=== PATIENT | female | born 1960 | race Caucasian/White ===

== ENCOUNTER → 2018-03-21 | Outpatient (CLI) | payer MEDICAID ==
--- NOTE | 2018-03-21 22:44 | MR ---
EXAMINATION TYPE: MR knee RT wo con DATE OF EXAM: 03/21/2018 COMPARISON: NONE HISTORY: Pain in right knee , unilateral primary osteoarthritis, medial meniscal tear, and chondrocal cinosis all per order. TECHNIQUE: Multiplanar, multisequence images of the knee is performed without IV contrast. FINDINGS: Exam is noted suboptimal due to motion artifact degradation. MEDIAL MENISCUS: Anterior horn is intact without tear. There is oblique increased signal posterior ho rn of medial meniscus extending to inferior articular surface. Medial extrusion of medial meniscus as seen on coronal images. LATERAL MENISCUS: Anterior and posterior horns are intact without tear. CRUCIATE LIGAMENTS: The anterior and posterior cruciate ligaments are intact and unremarkable. COLLATERAL LIGAMENTS: The medial collateral ligament and lateral collateral ligament complex are inta ct and unremarkable. EXTENSOR MECHANISM: Visualized quadriceps and patellar tendons are intact. EFFUSION: There is fairly moderate size suprapatellar joint effusion. POPLITEAL CYST: There is fairly moderate size popliteal/benavidez cyst measuring 6.0 cm sagittal image 11 . TRICOMPARTMENT SPACES: Fairly moderate tricompartment joint space loss and mild to moderate spurring lateral medial tibiofemoral compartments is present. CARTILAGE: There is chondromalacia patella with full-thickness areas of cartilaginous loss and assurance senior manager insurance ior patellar pole identified. Some more mild cartilaginous loss medial tibial femoral compartment is present. BONE MARROW SIGNAL: Marked heterogeneous increased T2 signal medial aspect tibial plateau is identifi ed. Some reactive osseous increased T2 changes at the areas of full-thickness cartilaginous loss posterio r patellar pole are identified for reference sagittal image 20. OTHER: Oval 7 mm benign osseous lesion distal femur coronal image 12 is noted favored enchondroma. IMPRESSION: 1. Oblique full thickness tear posterior horn medial meniscus. 2. Background fairly moderate to borderline advanced tricompartment degenerative changes with full-th ickness chondromalacia patella noted. 3. Moderate suprapatellar joint effusion. 4. Moderate sized popliteal cyst. 5. Marked osseous contusion and/or bone marrow edema involving the medial half of the tibial plateau and medial one third of the proximal tibial metaphysis.
== END | disposition home or self-care (01) ==
LOC: RADMRIMAIN 21:31
PROVIDERS: ATTEND Orthopaedic Surgery
DX: S83.241A Other tear of medial meniscus, current injury, right knee, initial encounter (principal); M17.11 Unilateral primary osteoarthritis, right knee; M22.41 Chondromalacia patellae, right knee; M71.21 Synovial cyst of popliteal space [Baker], right knee

== ENCOUNTER 2019-02-28 16:06 | Emergency (ER) | payer MEDICAID ==
[2019-02-28] MEDS ORDERED: ONDANSETRON 4 MG/2 ML VIAL IVP STA (16:47)
[2019-02-28] MEDS ORDERED: KETOROLAC 30 MG/ML 1 ML VIAL IVP STA (16:48)
[2019-02-28] MEDS ORDERED: SODIUM CHLORIDE 0.9% 500 ML 500 ML IV ONE (17:12)
[2019-02-28 17:33] LABS: Basophils # (A) 0.1 k/uL (0-0.2); Basophils % (A) 1 %; Eosinophils # (A) 0.1 k/uL (0-0.7); Eosinophils % (A) 1 %; HCT 42.1 % (34.0-46.0); HGB 14.2 gm/dL (11.4-16.0); Lymphocytes # (A) 1.6 k/uL (1.0-4.8); Lymphocytes % (A) 20 %; MCH 31.5 pg (25.0-35.0); MCHC 33.8 g/dL (31.0-37.0); MCV 93.3 fL (80.0-100.0); Monocytes # (A) 0.4 k/uL (0-1.0); Monocytes % (A) 5 %; Neutrophils # (A) 5.7 k/uL (1.3-7.7); Neutrophils % (A) 72 %; Platelet Count 265 k/uL (150-450); RBC 4.51 m/uL (3.80-5.40); RDW 13.7 % (11.5-15.5); WBC 7.9 k/uL (3.8-10.6)
[2019-02-28 17:44] LABS: Albumin 4.1 g/dL (3.5-5.0); Calcium 10.2 mg/dL (8.4-10.2); Potassium 3.6 mmol/L (3.5-5.1); Total Bilirubin 0.3 mg/dL (0.2-1.3); Total Protein 6.9 g/dL (6.3-8.2)
--- NOTE | 2019-02-28 18:02 | ED ---
Abdominal Pain HPI - General Chief Complaint: Abdominal Pain Stated Complaint: Rt side pain/vomiting Time Seen by Provider: 02/28/19 16:22 Source: patient Mode of arrival: wheelchair Limitations: no limitations - History of Present Illness Initial Comments: 58-year-old female with distant history of kidney stones presents emergency department for right flank pain that radiates towards the right groin x few hours. Patient also complaining of nausea and vomiting. Patient states that the symptoms began suddenly about an hour prior to arrival. Patient denies any noted hematuria dysuria or urgency frequency. Patient denies any fevers night sweats flulike symptoms. Patient denies chest pain source of breath patient denies any other associated symptoms. Patient describes the pain as very sharp 10 out of 10 pain. Patient upon arrival to the ER appears uncomfortable. VS stable, afebrile. - Related Data Previous Rx's Medication Instructions Recorded Ketorolac [Toradol] 10 mg PO Q8HR 5 Days #15 tab 02/28/19 Ondansetron Odt [Zofran Odt] 4 mg PO Q8HR PRN 7 Days #21 tab 02/28/19 Allergies Allergy/AdvReac Type Severity Reaction Status Date / Time morphine Allergy Unknown Verified 02/28/19 16:16 Penicillins Allergy Unknown Verified 02/28/19 16:16 Review of Systems ROS Statement: Those systems with pertinent positive or pertinent negative responses have been documented in the HPI. ROS Other: All systems not noted in ROS Statement are negative. Past Medical History Past Medical History: GERD/Reflux History of Any Multi-Drug Resistant Organisms: None Reported Past Surgical History: Back Surgery, Cholecystectomy, Hysterectomy Past Psychological History: No Psychological Hx Reported Smoking Status: Current some day smoker Past Alcohol Use History: None Reported Past Drug Use History: None Reported General Exam - General Exam Comments Initial Comments: General: The patient is awake and alert, appears uncomfortable, emesis basin at bedside Eye: +3 mm pupils are equal, round and reactive to light, extra-ocular movements are intact. No nystagmus. There is normal conjunctiva bilaterally. No signs of icterus. Ears, nose, mouth and throat: There are moist mucous membranes and no oral lesions. Neck: The neck is supple, there is no tenderness or JVD. Cardiovascular: There is a regular rate and rhythm. No murmur, rub or gallop is appreciated. Respiratory: Lungs are clear to auscultation, respirations are non-labored, breath sounds are equal. No wheezes, stridor, rales, or rhonchi. Gastrointestinal: Soft, non-distended, non-tender abdomen without masses or organomegaly noted. There is no rebound or guarding present. No CVA tenderness. Bowel sounds are unremarkable. No pulsatile masses. Musculoskeletal: Normal ROM, no tenderness. Strength 5/5. Sensation intact. Pulses equal bilaterally 2+. Neurological: A&O x 3. CN II-XII intact grossly, There are no obvious motor or sensory deficits. Coordination appears grossly intact. Speech is normal. Skin: Skin is warm and dry and no rashes or lesions are noted. Psychiatric: Cooperative, appropriate mood & affect, normal judgment. Limitations: no limitations Course Vital Signs 02/28/19 02/28/19 02/28/19 16:13 17:03 17:05 Temperature 97.7 F Pulse Rate 79 Respiratory 18 Rate Blood Pressure 145/62 64/41 109/64 O2 Sat by Pulse 99 Oximetry 02/28/19 02/28/19 02/28/19 17:30 17:40 18:10 Temperature Pulse Rate 53 L 67 74 Respiratory 18 16 18 Rate Blood Pressure 128/81 131/69 115/57 O2 Sat by Pulse 98 98 94 L Oximetry 02/28/19 18:49 Temperature 98.1 F Pulse Rate 77 Respiratory 18 Rate Blood Pressure 111/60 O2 Sat by Pulse 95 Oximetry Medical Decision Making - Medical Decision Making 58 or female presented for right flank pain vomiting nausea. Patient does have distant history of kidney stones. Patient has ALLERGY to contrast. Patient symptoms appear to correlate with kidney stone that most likely is in the ureter. During IV starter patient has vasovagal episode, blood pressure decreased patient felt as though she was going to pass out. EKG was obtained at this time revealing sinus bradycardia. Patient denied chest pain or shortness of breath. Patient states she did feel out of it . Patient was evaluated bedside by my attending prior doctor Anjali who is agreeable with impression given history, BP findings and course (pt symptoms resolved when BP elevated, appeared well). Patient was given Toradol patient states is significantly decreased symptoms. CT revealed a 2mm UVJ stone. No significant hydronephrosis. No signs of septic stone. Urinalysis revealed RBCs no white blood cells nitrates or significant leukocyte esterase. At this time feel patient's sympt oms are related to the UVJ stone. Patient has no other complaints to symptoms are controlled. She appears well vital signs stable. I discussed case and findings with any provider who is agreeable to plan of outpatient Toradol and Zofran as well as urology follow-up. Patient is established with Dr. Carter she is agreeable care plan return parameters were discussed and patient was discharged appearing well - Lab Data Result diagrams: 02/28/19 17:14 02/28/19 17:14 Lab Results 02/28/19 02/28/19 02/28/19 Range/Units 17:14 17:14 18:16 WBC 7.9 (3.8-10.6) k/uL RBC 4.51 (3.80-5.40) m/uL Hgb 14.2 (11.4-16.0) gm/dL Hct 42.1 (34.0-46.0) % MCV 93.3 (80.0-100.0) fL MCH 31.5 (25.0-35.0) pg MCHC 33.8 (31.0-37.0) g/dL RDW 13.7 (11.5-15.5) % Plt Count 265 (150-450) k/uL Neutrophils % 72 % Lymphocytes % 20 % Monocytes % 5 % Eosinophils % 1 % Basophils % 1 % Neutrophils # 5.7 (1.3-7.7) k/uL Lymphocytes # 1.6 (1.0-4.8) k/uL Monocytes # 0.4 (0-1.0) k/uL Eosinophils # 0.1 (0-0.7) k/uL Basophils # 0.1 (0-0.2) k/uL Sodium 140 (137-145) mmol/L Potassium 3.6 (3.5-5.1) mmol/L Chloride 106 (98-107) mmol/L Carbon Dioxide 24 (22-30) mmol/L Anion Gap 10 mmol/L BUN 12 (7-17) mg/dL Creatinine 0.87 (0.52-1.04) mg/dL Est GFR (CKD-EPI)AfAm 86 (>60 ml/min/1.73 sqM) Est GFR (CKD-EPI)NonAf 75 (>60 ml/min/1.73 sqM) Glucose 129 H (74-99) mg/dL Calcium 10.2 (8.4-10.2) mg/dL Total Bilirubin 0.3 (0.2-1.3) mg/dL AST 24 (14-36) U/L ALT 36 (9-52) U/L Alkaline Phosphatase 111 (38-126) U/L Total Protein 6.9 (6.3-8.2) g/dL Albumin 4.1 (3.5-5.0) g/dL Lipase 84 (23-300) U/L Urine Color Yellow Urine Appearance Clear (Clear) Urine pH 7.0 (5.0-8.0) Ur Specific [place] 1.018 (1.001-1.035) Urine Protein Negative (Negative) Urine Glucose (UA) Negative (Negative) Urine Ketones 1+ H (Negative) Urine Blood Moderate H (Negative) Urine Nitrite Negative (Negative) Urine Bilirubin Negative (Negative) Urine Urobilinogen <2.0 (<2.0) mg/dL Ur Leukocyte Esterase Negative (Negative) Urine RBC 117 H (0-5) /hpf Urine WBC 1 (0-5) /hpf Ur Squamous Epith Cells 1 (0-4) /hpf Urine Mucus Few H (None) /hpf - EKG Data EKG Comments: Ventricular rate 55 bpm, [place] interval 174 ms, QRS jain 86 ms, QT/QTC 4:30/411 ms. This is sinus bradycardia there is no ST elevation or depression noted heart blocks. EKG was interpreted personally and reviewed by my attending provider Disposition Clinical Impression: Right ureteral calculus, Nephrolithiasis, Right flank pain, Vomiting Disposition: HOME SELF-CARE Condition: Good Instructions (If sedation given, give patient instructions): Kidney Stones (ED) Additional Instructions: Please use medication as discussed. Please follow-up with your urologist next week. Please return to emergency room if the symptoms increase or worsen or for any other concerns, inability to urinate, uncontrolled pain, fevers. Prescriptions: Ketorolac [Toradol] 10 mg PO Q8HR 5 Days #15 tab Ondansetron Odt [Zofran Odt] 4 mg PO Q8HR PRN 7 Days #21 tab PRN Reason: Nausea Is patient prescribed a controlled substance at d/c from ED?: No Referrals: Nannette Velez MD [Primary Care Provider] - 1-2 days Coury,John, MD [STAFF PHYSICIAN] - 1-2 days Time of Disposition: 18:36
[2019-02-28 18:20] VITALS: RESP 18
--- NOTE | 2019-02-28 18:23 | CT ---
EXAMINATION TYPE: CT abdomen pelvis wo con DATE OF EXAM: 02/28/2019 COMPARISON: 04/16/2016 HISTORY: Right sided abdominal pain and inguinal pain. CT DLP: 796.6 mGycm Automated exposure control for dose reduction was used. TECHNIQUE: Helical acquisition of images was performed from the lung bases through the pelvis. FINDINGS: Lung bases are clear. There is no pleural effusion. Heart size is normal. There is no pericardial eff usion. There is small hiatal hernia. Liver spleen pancreas appear normal. There are clips from cholecystectomy. Bile ducts are not dilated . There is no adrenal mass. Kidneys have normal size. There is 2 mm calculus at the right ureterovesica l junction. There is minimal right-sided hydronephrosis. There is 2 mm calculus lateral right kidney. There is 2 mm calculus lower pole left kidney. There is no retroperitoneal adenopathy. Bladder diste nds smoothly. There is no inguinal hernia. There is no free fluid in the pelvis. Appendix appears normal. There is no mesenteric edema. There is no sign of a bowel obstruction. There is no ascites or free air. I see no bony destructive process. IMPRESSION: BILATERAL RENAL CALCULI. TINY OBSTRUCTING CALCULUS AT THE RIGHT URETEROVESICAL JUNCTION. OBSTRUCTION IS NEW COMPARED TO OLD EXAM.
[2019-02-28 18:27] LABS: Appearance,Urine Clear (Clear); Bilirubin,Urine Negative (Negative); Blood,Urine Moderate (Negative); Color,Urine Yellow; Glucose,Urine (UA) Negative (Negative); Ketones,Urine 1+ (Negative); Leukocyte Esterase,Urine Negative (Negative); Mucus,Urine Few /hpf; Nitrite,Urine Negative (Negative); Protein,Urine Negative (Negative); RBC,Urine 117 /hpf (0-5); Specific Gravity,Urine 1.018 (1.001-1.035); Squamous Epithelial Cell,Urine 1 /hpf (0-4); Urobilinogen,Urine <2.0 mg/dL (<2.0); WBC,Urine 1 /hpf (0-5)
[2019-02-28 18:52] VITALS: BP 111/60; PULSE 77; TEMP 98.1
== END 2019-02-28 18:48 | disposition home or self-care (01) ==
LOC: EC 16:06
DX: N20.2 Calculus of kidney with calculus of ureter (principal); R00.1 Bradycardia, unspecified; F17.200 Nicotine dependence, unspecified, uncomplicated; Z88.0 Allergy status to penicillin; Z88.5 Allergy status to narcotic agent; Z91.041 Radiographic dye allergy status; Z90.49 Acquired absence of other specified parts of digestive tract; Z90.710 Acquired absence of both cervix and uterus
CPT/HCPCS: 99284 ×2; 96374 ×2; 96375 ×2; 36415; 93005; 80053; 83690; 85025; 81001; 74176; J2405; J1885

== ENCOUNTER → 2019-03-27 | Outpatient (CLI) | payer MEDICAID ==
--- NOTE | 2019-03-27 09:55 | MM ---
Reason for exam: clinical finding. Last mammogram was performed 3 years and 3 months ago. History: Patient is postmenopausal. Family history of breast cancer in maternal aunt. Physical Findings: Nurse did not find any significant physical abnormalities on exam. MG 3D Diag Mammo W/Cad SHEKHAR Bilateral CC and MLO view(s) were taken. Prior study comparison: December 20, 2015, bilateral MG 3d screening mammo w/cad. November 15, 2014, bilateral MG screening mammo w CAD. The breast tissue is heterogeneously dense. This may lower the sensitivity of mammography. These results were verbally communicated with the patient and result sheet given to the patient on 03/27/19. ASSESSMENT: Incomplete: need additional imaging evaluation, BI-RAD 0 RECOMMENDATION: Ultrasound of the right breast. (pain)
--- NOTE | 2019-03-27 09:56 | USB ---
Reason for exam: additional evaluation requested from abnormal screening. History: Patient is postmenopausal. Family history of breast cancer in maternal aunt. US Breast Limited RT Right limited breast ultrasound including focal area of concern, retroareolar and axilla demonstrates no cystic or solid lesion seen. No suspicious sonographic finding. These results were verbally communicated with the patient and result sheet given to the patient on 03/27/19. ASSESSMENT: Negative, BI-RAD 1 RECOMMENDATION: Routine screening mammogram of both breasts in 1 year. Manage patient on a clinical basis.
== END | disposition home or self-care (01) ==
LOC: RADMAMWWP 07:02
PROVIDERS: ATTEND Family Medicine
DX: N64.4 Mastodynia (principal); R92.8 Other abnormal and inconclusive findings on diagnostic imaging of breast
CPT/HCPCS: 77062; 77066

== ENCOUNTER 2019-11-12 20:31 | Emergency (ER) | payer MEDICAID ==
[2019-11-12 20:40] VITALS: PULSE 71; TEMP 97.7
[2019-11-12] MEDS ORDERED: diphenhydrAMINE 50 MG/ML 1 ML VIAL IVP STA (21:07)
[2019-11-12] MEDS ORDERED: SODIUM CHLORIDE 0.9% 1,000 ML IV STA (21:07)
[2019-11-12] MEDS ORDERED: METOCLOPRAMIDE 5 MG/ML 2 ML VIAL IVP STA (21:07)
[2019-11-12] MEDS ORDERED: PANTOPRAZOLE 40 MG/10 ML VIAL IVP STA (21:08)
[2019-11-12] MEDS ORDERED: DICYCLOMINE 10 MG/ML 2 ML AMP IM STA (21:08)
--- NOTE | 2019-11-12 21:11 | ED ---
General Adult HPI - General Chief complaint: Nausea/Vomiting/Diarrhea Stated complaint: Side Pain, Vomiting Time Seen by Provider: 11/12/19 20:53 Source: patient Mode of arrival: ambulatory Limitations: no limitations - History of Present Illness Initial comments: Patient is a 60-year-old with history of kidney stones female with history of kidney stones presenting to the emergency department with a chief complaint of abdominal pain. Patient reports sudden onset of left flank without any radiation. Patient reports the pain feels like a "twisting sensation". Does report nausea with multiple episodes of nonbilious, nonbloody vomiting. States that incident occurred about few Hours prior to arrival. Denies any urinary or vaginal symptoms. Patient denies taking medication to alleviate the symptoms. Patient denies hematuria, hematochezia or melena. - Related Data Previous Rx's Medication Instructions Recorded Ketorolac [Toradol] 10 mg PO Q8HR 5 Days #15 tab 02/28/19 Ondansetron Odt [Zofran Odt] 4 mg PO Q8HR PRN 7 Days #21 tab 02/28/19 Metoclopramide [Reglan] 10 mg PO TID PRN #15 tab 11/12/19 Allergies Allergy/AdvReac Type Severity Reaction Status Date / Time morphine Allergy Unknown Verified 11/12/19 20:40 Penicillins Allergy Unknown Verified 11/12/19 20:40 Review of Systems ROS Statement: Those systems with pertinent positive or pertinent negative responses have been documented in the HPI. ROS Other: All systems not noted in ROS Statement are negative. Past Medical History Past Medical History: GERD/Reflux History of Any Multi-Drug Resistant Organisms: None Reported Past Surgical History: Back Surgery, Cholecystectomy, Hysterectomy Past Psychological History: No Psychological Hx Reported Smoking Status: Former smoker Past Alcohol Use History: None Reported Past Drug Use History: None Reported General Exam Limitations: no limitations General appearance: alert, in no apparent distress, obese Head exam: Present: atraumatic, normocephalic, normal inspection Eye exam: Present: normal appearance, PERRL, EOMI Pupils: Present: normal accommodation ENT exam: Present: normal exam, normal oropharynx, mucous membranes moist Neck exam: Present: normal inspection, full ROM. Absent: tenderness Respiratory exam: Present: normal lung sounds bilaterally. Absent: wheezes Cardiovascular Exam: Present: regular rate, normal rhythm, normal heart sounds GI/Abdominal exam: Present: soft, tenderness (Left upper quadrant). Absent: distended, guarding, rebound Extremities exam: Present: normal inspection, full ROM. Absent: tenderness Back exam: Present: normal inspection, full ROM, tenderness, CVA tenderness (L) Neurological exam: Present: alert, oriented X3 Psychiatric exam: Present: normal affect, normal mood Skin exam: Present: warm, dry, intact, normal color Course Vital Signs 11/12/19 11/12/19 20:34 22:00 Temperature 97.7 F Pulse Rate 71 Respiratory 18 161 H Rate Blood Pressure 143/73 111/64 O2 Sat by Pulse 98 Oximetry Medical Decision Making - Medical Decision Making Patient is a 58-year-old female with history of renal stones presenting to emergency Department with chief complaint of abdominal pain. This was sudden onset of pain in the left flank region. She does have left CVA tenderness. No urinary or vaginal symptoms. CBC CMP is unremarkable. UA reveals small amounts of blood and red blood cells. Based on the presentation and physical examination along with UA, I suspect renal stones to be the cause of her symptoms. Patient given analgesia, fluids and antiemetics. Reevaluation patient reports improved his symptoms. Patient advised to follow-up with her urologist. Return parameters were thoroughly discussed the patient is unde rstanding and agreeable. Case discussed with physician. - Lab Data Result diagrams: 11/12/19 21:22 11/12/19 21:22 Lab Results 11/12/19 11/12/19 11/12/19 Range/Units 21:22 21:22 21:22 WBC 7.7 (3.8-10.6) k/uL RBC 4.71 (3.80-5.40) m/uL Hgb 14.3 (11.4-16.0) gm/dL Hct 44.5 (34.0-46.0) % MCV 94.5 (80.0-100.0) fL MCH 30.4 (25.0-35.0) pg MCHC 32.1 (31.0-37.0) g/dL RDW 13.0 (11.5-15.5) % Plt Count 222 (150-450) k/uL Neutrophils % 75 % Lymphocytes % 18 % Monocytes % 5 % Eosinophils % 1 % Basophils % 0 % Neutrophils # 5.7 (1.3-7.7) k/uL Lymphocytes # 1.4 (1.0-4.8) k/uL Monocytes # 0.4 (0-1.0) k/uL Eosinophils # 0.1 (0-0.7) k/uL Basophils # 0.0 (0-0.2) k/uL Sodium 139 (137-145) mmol/L Potassium 3.8 (3.5-5.1) mmol/L Chloride 108 H (98-107) mmol/L Carbon Dioxide 26 (22-30) mmol/L Anion Gap 5 mmol/L BUN 16 (7-17) mg/dL Creatinine 0.95 (0.52-1.04) mg/dL Est GFR (CKD-EPI)AfAm 78 (>60 ml/min/1.73 sqM) Est GFR (CKD-EPI)NonAf 68 (>60 ml/min/1.73 sqM) Glucose 135 H (74-99) mg/dL Calcium 9.6 (8.4-10.2) mg/dL Total Bilirubin 0.5 (0.2-1.3) mg/dL AST 28 (14-36) U/L ALT 24 (4-34) U/L Alkaline Phosphatase 101 (38-126) U/L Total Protein 6.6 (6.3-8.2) g/dL Albumin 4.0 (3.5-5.0) g/dL Lipase 52 (23-300) U/L Urine Color Yellow Urine Appearance Clear (Clear) Urine pH 6.0 (5.0-8.0) Ur Specific [place] 1.011 (1.001-1.035) Urine Protein Negative (Negative) Urine Glucose (UA) Negative (Negative) Urine Ketones Negative (Negative) Urine Blood Small H (Negative) Urine Nitrite Negative (Negative) Urine Bilirubin Negative (Negative) Urine Urobilinogen <2.0 (<2.0) mg/dL Ur Leukocyte Esterase Negative (Negative) Urine RBC 4 (0-5) /hpf Urine WBC 2 (0-5) /hpf Ur Squamous Epith Cells 1 (0-4) /hpf Hyaline Casts 4 H (0-2) /lpf Urine Mucus Moderate H (None) /hpf Disposition Clinical Impression: Renal stones, Left flank pain, Hematuria Disposition: HOME SELF-CARE Condition: Good Instructions (If sedation given, give patient instructions): Kidney Stones (ED) Additional Instructions: Take prescribed medication as directed. Follow up with the urologist. Return to emergency department if symptoms worsen. Do not drive or operative heavy machinery when taking a Tylenol 3. Is patient prescribed a controlled substance at d/c from ED?: No Referrals: Nannette Velez MD [Primary Care Provider] - 1-2 days Time of Disposition: 22:58
[2019-11-12 21:30] LABS: Basophils % (A) 0 %; Eosinophils # (A) 0.1 k/uL (0-0.7); Eosinophils % (A) 1 %; HCT 44.5 % (34.0-46.0); HGB 14.3 gm/dL (11.4-16.0); Lymphocytes # (A) 1.4 k/uL (1.0-4.8); Lymphocytes % (A) 18 %; MCH 30.4 pg (25.0-35.0); MCHC 32.1 g/dL (31.0-37.0); MCV 94.5 fL (80.0-100.0); Mean Platelet Volume 7.6; Monocytes # (A) 0.4 k/uL (0-1.0); Monocytes % (A) 5 %; Neutrophils # (A) 5.7 k/uL (1.3-7.7); Neutrophils % (A) 75 %; Platelet Count 222 k/uL (150-450); RBC 4.71 m/uL (3.80-5.40); WBC 7.7 k/uL (3.8-10.6)
[2019-11-12 21:40] LABS: Calcium 9.6 mg/dL (8.4-10.2); Potassium 3.8 mmol/L (3.5-5.1); Total Bilirubin 0.5 mg/dL (0.2-1.3); Total Protein 6.6 g/dL (6.3-8.2)
[2019-11-12 22:45] LABS: Appearance,Urine Clear (Clear); Bilirubin,Urine Negative (Negative); Blood,Urine Small (Negative); Color,Urine Yellow; Glucose,Urine (UA) Negative (Negative); Hyaline Casts,Urine 4 /lpf (0-2); Ketones,Urine Negative (Negative); Leukocyte Esterase,Urine Negative (Negative); Mucus,Urine Moderate /hpf; Nitrite,Urine Negative (Negative); Protein,Urine Negative (Negative); RBC,Urine 4 /hpf (0-5); Specific Gravity,Urine 1.011 (1.001-1.035); Squamous Epithelial Cell,Urine 1 /hpf (0-4); Urobilinogen,Urine <2.0 mg/dL (<2.0); WBC,Urine 2 /hpf (0-5)
[2019-11-12] MEDS ORDERED: ACET/COD 300 MG/30 MG STARTER PACK 6 TAB BTL PO STA (22:56)
--- NOTE | 2019-11-12 23:19 | XR ---
EXAMINATION TYPE: XR KUB DATE OF EXAM: 11/12/2019 COMPARISON: 03/09/2016 HISTORY: Left upper quadrant pain TECHNIQUE: 2 views upright FINDINGS: Bowel gas pattern is normal. There is no sign of intestinal obstruction or pneumoperitoneum . Fecal pattern is normal. There is no sign of a mass. Lung bases are clear. There are clips from cho lecystectomy. There are no pathologic calcifications over the kidneys. IMPRESSION: Nonacute abdomen. No adverse change compared to old exam.
[2019-11-12 23:25] VITALS: BP 112/63; RESP 16
== END 2019-11-12 23:30 | disposition home or self-care (01) ==
LOC: EC 20:31
DX: N20.0 Calculus of kidney (principal); Z88.0 Allergy status to penicillin; Z88.5 Allergy status to narcotic agent; Z90.49 Acquired absence of other specified parts of digestive tract; Z90.710 Acquired absence of both cervix and uterus; Z87.891 Personal history of nicotine dependence
CPT/HCPCS: 36415; 80053; 83690; 85025; 81001; 74018; 99284; 96374; 96375 ×2; 96361; J1200; J2765; C9113

== ENCOUNTER 2020-01-14 06:36 | Emergency (ER) | payer MEDICAID ==
[2020-01-14 06:43] VITALS: TEMP 98
[2020-01-14] MEDS ORDERED: METOCLOPRAMIDE 5 MG/ML 2 ML VIAL IVP STA (06:54)
[2020-01-14] MEDS ORDERED: SODIUM CHLORIDE 0.9% 1,000 ML IV STA ×2 (06:54)
[2020-01-14] MEDS ORDERED: KETOROLAC 15 MG/ML 1 ML VIAL IVP STA (06:54)
[2020-01-14] MEDS ORDERED: MORPHINE SULFATE 4 MG/ML SYRINGE IV STA (06:54)
[2020-01-14] MEDS ORDERED: HYDROmorphone 1 MG/ML 1 ML SYRINGE IVP STA (06:55)
[2020-01-14] MEDS ORDERED: diphenhydrAMINE 50 MG/ML 1 ML VIAL IVP STA (06:55)
--- NOTE | 2020-01-14 06:58 | ED ---
Abdominal Pain HPI - General Chief Complaint: Abdominal Pain Stated Complaint: L flank pain Time Seen by Provider: 01/14/20 06:47 Source: patient, RN notes reviewed, old records reviewed Mode of arrival: ambulatory Limitations: no limitations - History of Present Illness Initial Comments: Pt is a 59-year-old female who presents emergency department today with chief complaint of left flank pain with radiation towards the left groin and inguinal region. She reports she's had episodes of nausea and vomiting. The symptoms started at 4:30. Patient reports that she vomited so hard she accidentally urinated on herself. Patient states that she has a history of kidney stones in the past but none that have had a be surgically removed or lithotripsies. She states that she has noticed no significant change in her urine, but does report chronic microscopic hematuria. She denies any changes in stools. - Related Data Previous Rx's Medication Instructions Recorded Ketorolac [Toradol] 10 mg PO Q8HR 5 Days #15 tab 02/28/19 Ondansetron Odt [Zofran Odt] 4 mg PO Q8HR PRN 7 Days #21 tab 02/28/19 Metoclopramide [Reglan] 10 mg PO TID PRN #15 tab 11/12/19 Acetaminophen-Codeine 300-30mg 1 - 2 tab PO Q4-6H PRN #12 tablet 01/14/20 [Tylenol w/codeine #3] Ketorolac [Toradol] 10 mg PO Q6HR #12 tab 01/14/20 Metoclopramide [Reglan] 10 mg PO ACHS #12 tab 01/14/20 Tamsulosin [Flomax] 0.4 mg PO DAILY #7 cap 01/14/20 Allergies Allergy/AdvReac Type Severity Reaction Status Date / Time morphine Allergy Unknown Verified 01/14/20 06:43 Penicillins Allergy Unknown Verified 01/14/20 06:43 ondansetron [From Zofran] AdvReac Unknown Verified 01/14/20 06:43 Review of Systems ROS Statement: Those systems with pertinent positive or pertinent negative responses have been documented in the HPI. ROS Other: All systems not noted in ROS Statement are negative. Past Medical History Past Medical History: GERD/Reflux History of Any Multi-Drug Resistant Organisms: None Reported Past Surgical History: Back Surgery, Cholecystectomy, Hysterectomy Past Psychological History: No Psychological Hx Reported Smoking Status: Current some day smoker Past Alcohol Use History: None Reported Past Drug Use History: None Reported General Exam - General Exam Comments Initial Comments: 59-year-old female. Alert and oriented. No distress. Limitations: no limitations General appearance: alert, in no apparent distress Head exam: Present: atraumatic, normocephalic, normal inspection Eye exam: Present: normal appearance, PERRL, EOMI. Absent: scleral icterus, conjunctival injection, periorbital swelling ENT exam: Present: normal exam, mucous membranes moist Neck exam: Present: normal inspection. Absent: tenderness, meningismus, lymphadenopathy Respiratory exam: Present: normal lung sounds bilaterally. Absent: respiratory distress, wheezes, rales, rhonchi, stridor Cardiovascular Exam: Present: regular rate, normal rhythm, normal heart sounds. Absent: systolic murmur, diastolic murmur, rubs, gallop, clicks GI/Abdominal exam: Present: soft, tenderness (Left lower quadrant tenderness, minimal left CVA tenderness), normal bowel sounds. Absent: distended, guarding, rebound, rigid Extremities exam: Present: normal inspection, full ROM, normal capillary refill. Absent: tenderness, pedal edema, joint swelling, calf tenderness Back exam: Present: normal inspection Neurological exam: Present: alert, oriented X3, CN II-XII intact Psychiatric exam: Present: normal affect, normal mood Skin exam: Present: warm, dry, intact, normal color. Absent: rash Course Vital Signs 01/14/20 06:41 Temperature 98 F Pulse Rate 82 Respiratory 20 Rate Blood Pressure 146/88 O2 Sat by Pulse 98 Oximetry - Reevaluation(s) Reevaluation #1: 01/14/20 08:07 is reevaluated and resting comfortably in bed. Stating she has no further pain at this time. Discussed findings and possible imaging studies and discuss the review patient's previous computed tomography scan she's had no stones great er than 2 mm. I discussed that should likely pass with assistance of Flomax and medication and did offer the Patient a computed tomography scan but states that she prefers to go home without this that she believes that she'll pass this without any further testing such as CAT scans at this time. Medical Decision Making - Medical Decision Making 59-year-old female presents transferred today for concern for left-sided flank pain and groin pain starting reports her this morning as well as nausea vomiting. She said history of kidney stones past. None requiring lithotripsy or surgery to remove. Exam she does have some left CVA tenderness and left lower quadrant tenderness. Patient labs reviewed blood work was unremarkable. She does have significant hematuria. Review patient's previous computed tomography scan she's had no stones greater than 2 mm. Patient for CAT scan but states her to treat this symptomatically with medication. Discussed that is appropriate and will discharge Patient with Flomax and pain medication and nausea medication. Discussed strict return parameters. - Lab Data Result diagrams: 01/14/20 07:08 01/14/20 07:08 Lab Results 01/14/20 01/14/20 01/14/20 Range/Units 07:08 07:08 07:08 WBC 6.9 (3.8-10.6) k/uL RBC 4.93 (3.80-5.40) m/uL Hgb 14.9 (11.4-16.0) gm/dL Hct 46.4 H (34.0-46.0) % MCV 94.0 (80.0-100.0) fL MCH 30.2 (25.0-35.0) pg MCHC 32.1 (31.0-37.0) g/dL RDW 13.6 (11.5-15.5) % Plt Count 250 (150-450) k/uL Neutrophils % 74 % Lymphocytes % 19 % Monocytes % 4 % Eosinophils % 2 % Basophils % 0 % Neutrophils # 5.1 (1.3-7.7) k/uL Lymphocytes # 1.3 (1.0-4.8) k/uL Monocytes # 0.3 (0-1.0) k/uL Eosinophils # 0.1 (0-0.7) k/uL Basophils # 0.0 (0-0.2) k/uL PT 9.4 (9.0-12.0) sec INR 0.9 (<1.2) APTT 22.2 (22.0-30.0) sec Sodium 140 (137-145) mmol/L Potassium 3.9 (3.5-5.1) mmol/L Chloride 108 H (98-107) mmol/L Carbon Dioxide 23 (22-30) mmol/L Anion Gap 9 mmol/L BUN 15 (7-17) mg/dL Creatinine 0.87 (0.52-1.04) mg/dL Est GFR (CKD-EPI)AfAm 86 (>60 ml/min/1.73 sqM) Est GFR (CKD-EPI)NonAf 74 (>60 ml/min/1.73 sqM) Glucose 178 H (74-99) mg/dL Calcium 9.7 (8.4-10.2) mg/dL Total Bilirubin 0.5 (0.2-1.3) mg/dL AST 24 (14-36) U/L ALT 20 (4-34) U/L Alkaline Phosphatase 97 (38-126) U/L Total Protein 7.0 (6.3-8.2) g/dL Albumin 4.3 (3.5-5.0) g/dL Amylase 48 (30-110) U/L Lipase 89 (23-300) U/L Urine Color Urine Appearance (Clear) Urine pH (5.0-8.0) Ur Specific [place] (1.001-1.035) Urine Protein (Negative) Urine Glucose (UA) (Negative) Urine Ketones (Negative) Urine Blood (Negative) Urine Nitrite (Negative) Urine Bilirubin (Negative) Urine Urobilinogen (<2.0) mg/dL Ur Leukocyte Esterase (Negative) Urine RBC (0-5) /hpf Urine WBC (0-5) /hpf Ur Squamous Epith Cells (0-4) /hpf Hyaline Casts (0-2) /lpf Urine Mucus (None) /hpf 20/20 Range/Units 07:38 WBC (3.8-10.6) k/uL RBC (3.80-5.40) m/uL Hgb (11.4-16.0) gm/dL Hct (34.0-46.0) % MCV (80.0-100.0) fL MCH (25.0-35.0) pg MCHC (31.0-37.0) g/dL RDW (11.5-15.5) % Plt Count (150-450) k/uL Neutrophils % % Lymphocytes % % Monocytes % % Eosinophils % % Basophils % % Neutrophils # (1.3-7.7) k/uL Lymphocytes # (1.0-4.8) k/uL Monocytes # (0-1.0) k/uL Eosinophils # (0-0.7) k/uL Basophils # (0-0.2) k/uL PT (9.0-12.0) sec INR (<1.2) APTT (22.0-30.0) sec Sodium (137-145) mmol/L Potassium (3.5-5.1) mmol/L Chloride (98-107) mmol/L Carbon Dioxide (22-30) mmol/L Anion Gap mmol/L BUN (7-17) mg/dL Creatinine (0.52-1.04) mg/dL Est GFR (CKD-EPI)AfAm (>60 ml/min/1.73 sqM) Est GFR (CKD-EPI)NonAf (>60 ml/min/1.73 sqM) Glucose (74-99) mg/dL Calcium (8.4-10.2) mg/dL Total Bilirubin (0.2-1.3) mg/dL AST (14-36) U/L ALT (4-34) U/L Alkaline Phosphatase (38-126) U/L Total Protein (6.3-8.2) g/dL Albumin (3.5-5.0) g/dL Amylase (30-110) U/L Lipase (23-300) U/L Urine Color Yellow Urine Appearance Cloudy H (Clear) Urine pH 5.5 (5.0-8.0) Ur Specific [place] 1.023 (1.001-1.035) Urine Protein 1+ H (Negative) Urine Glucose (UA) Negative (Negative) Urine Ketones Negative (Negative) Urine Blood Large H (Negative) Urine Nitrite Negative (Negative) Urine Bilirubin Negative (Negative) Urine Urobilinogen <2.0 (<2.0) mg/dL Ur Leukocyte Esterase Negative (Negative) Urine RBC >182 H (0-5) /hpf Urine WBC 3 (0-5) /hpf Ur Squamous Epith Cells 2 (0-4) /hpf Hyaline Casts 3 H (0-2) /lpf Urine Mucus Few H (None) /hpf - Radiology Data Radiology results: report reviewed Nonspecific abdomen and KUB. Disposition Clinical Impression: Left flank pain, Hematuria Disposition: HOME SELF-CARE Condition: Good Instructions (If sedation given, give patient instructions): Hematuria (ED) Additional Instructions: Please use medication as discussed. Please follow up with family doctor if symptoms have not improved over the next two days. Please return to the emergency room if your symptoms increase or worsen or for any other concerns. Prescriptions: Tamsulosin [Flomax] 0.4 mg PO DAILY #7 cap Metoclopramide [Reglan] 10 mg PO ACHS #12 tab Ketorolac [Toradol] 10 mg PO Q6HR #12 tab Acetaminophen-Codeine 300-30mg [Tylenol w/codeine #3] 1 - 2 tab PO Q4-6H PRN #12 tablet PRN Reason: Pain Is patient prescribed a controlled substance at d/c from ED?: Yes If prescribed controlled substance>3 days was MAPS reviewed?: Prescribed <3 Days If opioid is for acute pain is fill amount 7 days or less?: Yes If Rx opioid, was Start Talking consent form obtained?: Yes Referrals: Nannette Velez MD [Primary Care Provider] - 1-2 days John Emanuel MD [STAFF PHYSICIAN] - 1-2 days Time of Disposition: 08:10
[2020-01-14 07:21] LABS: Basophils % (A) 0 %; Eosinophils # (A) 0.1 k/uL (0-0.7); Eosinophils % (A) 2 %; HCT 46.4 % (34.0-46.0); HGB 14.9 gm/dL (11.4-16.0); Lymphocytes # (A) 1.3 k/uL (1.0-4.8); Lymphocytes % (A) 19 %; MCH 30.2 pg (25.0-35.0); MCHC 32.1 g/dL (31.0-37.0); Mean Platelet Volume 7.6; Monocytes # (A) 0.3 k/uL (0-1.0); Monocytes % (A) 4 %; Neutrophils # (A) 5.1 k/uL (1.3-7.7); Neutrophils % (A) 74 %; Platelet Count 250 k/uL (150-450); RBC 4.93 m/uL (3.80-5.40); RDW 13.6 % (11.5-15.5); WBC 6.9 k/uL (3.8-10.6)
[2020-01-14 07:30] LABS: Albumin 4.3 g/dL (3.5-5.0); Calcium 9.7 mg/dL (8.4-10.2); Potassium 3.9 mmol/L (3.5-5.1); Total Bilirubin 0.5 mg/dL (0.2-1.3)
[2020-01-14 07:31] LABS: INR 0.9 (<1.2); Partial Thromboplastin Time 22.2 sec (22.0-30.0); Prothrombin Time 9.4 sec (9.0-12.0)
--- NOTE | 2020-01-14 07:55 | XR ---
EXAMINATION TYPE: XR KUB DATE OF EXAM: 01/14/2020 COMPARISON: 11/12/2019 HISTORY: Pain TECHNIQUE: One view abdominal series FINDINGS: The osseous structures are intact. The bowel gas pattern is nonspecific. Hypertrophic and degenerati ve changes spine. Surgical clips in the abdomen seen. Hypertrophic change of the acetabulum correlate for femoral acetabular impingement. IMPRESSION: 1. Nonspecific abdomen.
[2020-01-14 07:58] LABS: Appearance,Urine Cloudy (Clear); Bilirubin,Urine Negative (Negative); Blood,Urine Large (Negative); Color,Urine Yellow; Glucose,Urine (UA) Negative (Negative); Hyaline Casts,Urine 3 /lpf (0-2); Ketones,Urine Negative (Negative); Leukocyte Esterase,Urine Negative (Negative); Mucus,Urine Few /hpf; Nitrite,Urine Negative (Negative); PH, Urine 5.5 (5.0-8.0); Protein,Urine 1+ (Negative); RBC,Urine >182 /hpf (0-5); Specific Gravity,Urine 1.023 (1.001-1.035); Squamous Epithelial Cell,Urine 2 /hpf (0-4); Urobilinogen,Urine <2.0 mg/dL (<2.0); WBC,Urine 3 /hpf (0-5)
[2020-01-14] MEDS ORDERED: TAMSULOSIN 0.4 MG CAP.ER.24H PO STA (08:05)
[2020-01-14] MEDS ORDERED: ACET/COD 300 MG/30 MG STARTER PACK 6 TAB BTL PO STA (08:06)
[2020-01-14 08:23] VITALS: BP 120/68; PULSE 75; RESP 18
== END 2020-01-14 08:26 | disposition home or self-care (01) ==
LOC: EC 06:36
DX: R10.9 Unspecified abdominal pain (principal); R31.9 Hematuria, unspecified; R11.2 Nausea with vomiting, unspecified; F17.200 Nicotine dependence, unspecified, uncomplicated; Z88.0 Allergy status to penicillin; Z88.5 Allergy status to narcotic agent; Z88.8 Allergy status to other drugs, medicaments and biological substances; Z90.49 Acquired absence of other specified parts of digestive tract; Z90.710 Acquired absence of both cervix and uterus
CPT/HCPCS: 36415; 80053; 82150; 83690; 85025; 85610; 85730; 81001; 74018; 99284; 96374; 96375 ×3; 96361; J1200; J2765; J1170; J1885

== ENCOUNTER 2020-04-02 09:05 | Emergency (ER) | payer MEDICAID ==
[2020-04-02 09:09] VITALS: RESP 18; TEMP 98.4
[2020-04-02] MEDS ORDERED: SODIUM CHLORIDE 0.9% 1,000 ML IV STA (09:16)
[2020-04-02] MEDS ORDERED: HYDROmorphone 0.5 MG/0.5 ML SYRINGE IVP STA (09:43)
[2020-04-02] MEDS ORDERED: diphenhydrAMINE 50 MG/ML 1 ML VIAL IVP STA (09:43)
[2020-04-02] MEDS ORDERED: METOCLOPRAMIDE 5 MG/ML 2 ML VIAL IVP STA (09:43)
[2020-04-02] MEDS ORDERED: KETOROLAC 15 MG/ML 1 ML VIAL IVP STA (09:44)
--- NOTE | 2020-04-02 09:47 | ED ---
Abdominal Pain HPI - General Chief Complaint: Abdominal Pain Stated Complaint: Kidney Stones Time Seen by Provider: 04/02/20 09:15 Source: patient, RN notes reviewed Mode of arrival: ambulatory Limitations: no limitations - History of Present Illness Initial Comments: This a 59-year-old female presents emergency Department chief complaint of left flank pain. Patient states that she has a history kidney stones and states that she's had multiple issues. Patient is being currently followed by Dr. Emanuel. Patient states pain started around 11 PM last night has been persistent. Patient's had nausea and vomiting. Denies chest pain, shortness breath, headache or dizziness no dysuria no noted hematuria - Related Data Home Medications Medication Instructions Recorded Confirmed Tamsulosin [Flomax] 0.4 mg PO HS 04/02/20 04/02/20 Previous Rx's Medication Instructions Recorded Ketorolac [Toradol] 10 mg PO Q8HR #15 tab 04/02/20 Metoclopramide [Reglan] 10 mg PO TID PRN #15 tab 04/02/20 Tamsulosin [Flomax] 0.4 mg PO DAILY #7 cap 04/02/20 Allergies Allergy/AdvReac Type Severity Reaction Status Date / Time morphine Allergy Unknown Verified 04/02/20 10:35 Penicillins Allergy Unknown Verified 04/02/20 10:35 ondansetron [From Zofran] AdvReac Unknown Verified 04/02/20 10:35 Review of Systems ROS Statement: Those systems with pertinent positive or pertinent negative responses have been documented in the HPI. ROS Other: All systems not noted in ROS Statement are negative. Past Medical History Past Medical History: GERD/Reflux History of Any Multi-Drug Resistant Organisms: None Reported Past Surgical History: Back Surgery, Cholecystectomy, Hysterectomy Past Psychological History: No Psychological Hx Reported Smoking Status: Current some day smoker Past Alcohol Use History: None Reported Past Drug Use History: None Reported General Exam Limitations: no limitations General appearance: alert, in no apparent distress Head exam: Present: atraumatic, normocephalic, normal inspection Eye exam: Present: normal appearance, PERRL, EOMI. Absent: scleral icterus, conjunctival injection, periorbital swelling ENT exam: Present: normal exam, normal oropharynx, mucous membranes moist Neck exam: Present: normal inspection, full ROM. Absent: tenderness, meningismus, lymphadenopathy Respiratory exam: Present: normal lung sounds bilaterally. Absent: respiratory distress, wheezes, rales, rhonchi, stridor Cardiovascular Exam: Present: regular rate, normal rhythm, normal heart sounds. Absent: systolic murmur, diastolic murmur, rubs, gallop, clicks GI/Abdominal exam: Present: soft, normal bowel sounds. Absent: distended, tenderness, guarding, rebound, rigid Back exam: Absent: CVA tenderness (R), CVA tenderness (L) Neurological exam: Present: alert Skin exam: Present: warm, dry, intact, normal color. Absent: rash Course Vital Signs 04/02/20 09:06 Temperature 98.4 F Pulse Rate 82 Respiratory 18 Rate Blood Pressure 119/83 O2 Sat by Pulse 99 Oximetry Medical Decision Making - Medical Decision Making 59-year-old female presented for flank pain. Patient has history kidney stones patient has hematuria she feels greatly improved after IV fluids, pain medication. Labs were not resulted as blood work was lost by laboratory. Patient is feeling improved does not request any further testing. Patient be discharged in stable condition return parameters were discussed. - Lab Data Lab Results 04/02/20 Range/Units 09:59 Urine Color Yellow Urine Appearance Clear (Clear) Urine pH 6.0 (5.0-8.0) Ur Specific [place] 1.021 (1.001-1.035) Urine Protein Negative (Negative) Urine Glucose (UA) Negative (Negative) Urine Ketones 1+ H (Negative) Urine Blood Moderate H (Negative) Urine Nitrite Negative (Negative) Urine Bilirubin Negative (Negative) Urine Urobilinogen <2.0 (<2.0) mg/dL Ur Leukocyte Esterase Negative (Negative) Urine RBC 22 H (0-5) /hpf Urine WBC 6 H (0-5) /hpf Ur Squamous Epith Cells 2 (0-4) /hpf Urine Mucus Occasional H (None) /hpf Disposition Clinical Impression: Kidney stone Disposition: HOME SELF-CARE Condition: Stable Instructions (If sedation given, give patient instructions): Kidney Stones (ED) Additional Instructions: Please return to the Emergency Department if symptoms worsen or any other concerns. Prescriptions: Tamsulosin [Flomax] 0.4 mg PO DAILY #7 cap Metoclopramide [Reglan] 10 mg PO TID PRN #15 tab PRN Reason: GERD Ketorolac [Toradol] 10 mg PO Q8HR #15 tab Is patient prescribed a controlled substance at d/c from ED?: No Referrals: Nannette Velez MD [Primary Care Provider] - 1-2 days Time of Disposition: 11:17
[2020-04-02 10:12] LABS: Appearance,Urine Clear (Clear); Bilirubin,Urine Negative (Negative); Blood,Urine Moderate (Negative); Color,Urine Yellow; Glucose,Urine (UA) Negative (Negative); Ketones,Urine 1+ (Negative); Leukocyte Esterase,Urine Negative (Negative); Mucus,Urine Occasional /hpf; Nitrite,Urine Negative (Negative); Protein,Urine Negative (Negative); RBC,Urine 22 /hpf (0-5); Specific Gravity,Urine 1.021 (1.001-1.035); Squamous Epithelial Cell,Urine 2 /hpf (0-4); Urobilinogen,Urine <2.0 mg/dL (<2.0); WBC,Urine 6 /hpf (0-5)
--- NOTE | 2020-04-02 11:03 | XR ---
EXAMINATION TYPE: XR KUB DATE OF EXAM: 04/02/2020 10:22 AM CLINICAL HISTORY: Left flank pain TECHNIQUE: Upright images of the abdomen and pelvis were obtained COMPARISON: 01/14/2020 KUB. FINDINGS: Right upper quadrant surgical clips. Nonspecific bowel gas pattern. There is no visceromega ly, pneumoperitoneum, or abnormal calcification appreciated. The lung bases are clear. The osseous st ructures are intact. IMPRESSION: Nonspecific bowel gas pattern.
[2020-04-02] MEDS ORDERED: ACET/COD 300 MG/30 MG STARTER PACK 6 TAB BTL PO STA (11:15)
[2020-04-02 11:37] VITALS: BP 110/69; PULSE 66
== END 2020-04-02 11:40 | disposition home or self-care (01) ==
LOC: EC 09:05
DX: N20.0 Calculus of kidney (principal); F17.200 Nicotine dependence, unspecified, uncomplicated; Z79.899 Other long term (current) drug therapy; Z88.0 Allergy status to penicillin; Z88.5 Allergy status to narcotic agent; Z88.8 Allergy status to other drugs, medicaments and biological substances; Z90.49 Acquired absence of other specified parts of digestive tract; Z90.710 Acquired absence of both cervix and uterus
CPT/HCPCS: 81001; 74018; 99284; 96374; 96375 ×3; 96361; J1200; J2765; J1885; J1170

== ENCOUNTER 2020-12-07 03:14 | Emergency (ER) | payer MEDICAID ==
[2020-12-07 03:21] VITALS: BP 145/77; PULSE 60; RESP 18; TEMP 98
--- NOTE | 2020-12-07 04:11 | ED ---
Extremity Problem HPI - General Chief complaint: Extremity Problem,Nontraumatic Stated complaint: RT foot pain Time Seen by Provider: 12/07/20 03:23 Source: patient Mode of arrival: ambulatory Limitations: no limitations - History of Present Illness MD Complaint: extremity pain -: hour(s) Location: right History of Same: No Quality: sharp Consistency: intermittent Improves with: nothing Worsens with: weight bearing Associated Symptoms: denies other symptoms - Related Data Home Medications Medication Instructions Recorded Confirmed Tamsulosin [Flomax] 0.4 mg PO HS 04/02/20 04/02/20 Previous Rx's Medication Instructions Recorded Ketorolac [Toradol] 10 mg PO Q8HR #15 tab 04/02/20 Metoclopramide [Reglan] 10 mg PO TID PRN #15 tab 04/02/20 Tamsulosin [Flomax] 0.4 mg PO DAILY #7 cap 04/02/20 Allergies Allergy/AdvReac Type Severity Reaction Status Date / Time morphine Allergy Unknown Verified 12/07/20 03:21 Penicillins Allergy Unknown Verified 12/07/20 03:21 ondansetron [From Zofran] AdvReac Unknown Verified 12/07/20 03:21 Review of Systems ROS Statement: Those systems with pertinent positive or pertinent negative responses have been documented in the HPI. ROS Other: All systems not noted in ROS Statement are negative. Constitutional: Denies: fever, chills, weakness Respiratory: Denies: cough, dyspnea Cardiovascular: Denies: chest pain, palpitations Musculoskeletal: Reports: as per HPI Skin: Denies: rash Neurological: Denies: weakness, numbness, paresthesias Past Medical History Past Medical History: GERD/Reflux History of Any Multi-Drug Resistant Organisms: None Reported Past Surgical History: Back Surgery, Cholecystectomy, Hysterectomy Past Psychological History: No Psychological Hx Reported Smoking Status: Current some day smoker Past Alcohol Use History: None Reported Past Drug Use History: None Reported General Exam Limitations: no limitations General appearance: alert, in no apparent distress Extremities exam: Present: normal inspection, full ROM, tenderness, normal capillary refill. Absent: pedal edema, joint swelling, calf tenderness Neurological exam: Absent: motor sensory deficit Skin exam: Present: warm, dry, intact, normal color. Absent: rash Course Vital Signs 12/07/20 03:17 Temperature 98 F Pulse Rate 60 Respiratory 18 Rate Blood Pressure 145/77 O2 Sat by Pulse 96 Oximetry Disposition Clinical Impression: Plantar fasciitis Disposition: HOME SELF-CARE Condition: Good Instructions (If sedation given, give patient instructions): Plantar Fasciitis (ED) Is patient prescribed a controlled substance at d/c from ED?: No Referrals: Nannette Velez MD [Primary Care Provider] - 1-2 days
--- NOTE | 2020-12-07 04:17 | XR ---
EXAMINATION TYPE: XR foot complete RT DATE OF EXAM: 12/07/2020 COMPARISON: NONE HISTORY: Foot pain TECHNIQUE: 3 views FINDINGS: Metatarsals are intact. I see no fracture nor dislocation. Joint spaces are fairly normal. There are no erosions. There is plantar calcaneal spurring. IMPRESSION: Calcaneal spurring. No fracture seen.
== END 2020-12-07 04:49 | disposition home or self-care (01) ==
LOC: EC 03:14
DX: M72.2 Plantar fascial fibromatosis (principal); F17.200 Nicotine dependence, unspecified, uncomplicated; Z88.0 Allergy status to penicillin; Z88.5 Allergy status to narcotic agent; Z88.8 Allergy status to other drugs, medicaments and biological substances
CPT/HCPCS: 99283

== ENCOUNTER → 2020-12-19 | Outpatient (CLI) | payer MEDICAID ==
--- NOTE | 2020-12-19 16:11 | NM ---
EXAMINATION TYPE: NM bone/joint limited DATE OF EXAM: 12/19/2020 COMPARISON: Radiographs left foot 12/07/2020 HISTORY: 60-year-old female anterior medial right foot pain for 1.5 weeks along with swelling. Assess for possible stress fracture. M79.671, right foot pain. TECHNIQUE: After the intravenous administration of 22 mCi Tc 99m MDP. Images acquired 3 hours post injection. Multiple views of the bilateral distal lower extremities are submitted. FINDINGS: There is asymmetric increased activity along the right ankle and dorsal hindfoot and midfoot regions some increased uptake seems to correspond to the medial navicular. IMPRESSION: Asymmetric increased activity involving the right ankle and dorsal right mid to hindfoot including th e medial navicular. If there is concern for posttraumatic etiology, consider further evaluation with MRI. Underlying stress fracture is not excluded based on these scintigraphic findings.
== END | disposition home or self-care (01) ==
LOC: RADNMMAIN 11:25
PROVIDERS: ATTEND Family Medicine
DX: M79.671 Pain in right foot (principal)
CPT/HCPCS: 78300; A9503

== ENCOUNTER → 2021-12-01 | Outpatient (CLI) | payer MEDICAID ==
--- NOTE | 2021-12-01 15:14 | XR ---
EXAMINATION TYPE: XR chest 2V DATE OF EXAM: 12/01/2021 COMPARISON: Prior chest x-ray February 02, 2016 HISTORY: Cough. TECHNIQUE: Frontal and lateral views of the chest are obtained. FINDINGS: There is no suspicious new focal air space opacity, pleural effusion, or pneumothorax seen . The cardiac silhouette size remains within normal limits. Multilevel spurring in the lower thoraci c spine is again seen. Cholecystectomy clips are redemonstrated. Surgical clips epigastric region are redemonstrated. IMPRESSION: No new acute pulmonary process. No significant change from prior.
== END | disposition home or self-care (01) ==
LOC: RADXRMAIN 13:52
PROVIDERS: ATTEND Family Medicine
DX: R05.9 Cough, unspecified (principal)
CPT/HCPCS: 71046

== ENCOUNTER → 2022-10-06 | Outpatient (CLI) | payer MEDICAID ==
--- NOTE | 2022-10-08 11:42 | CTL ---
EXAMINATION TYPE: CT Low Dose Lung DATE OF EXAM ORDERED: 10/06/2022 HISTORY: . Lung cancer screening CT DLP: 103.[address] CTDI: 4.00 mGy Automated exposure control for dose reduction was used. SCREENING VISIT: COMPARISON: TECHNIQUE: Low dose computed tomography scan was performed through the chest at 1 mm thick sections a nd reconstructed images in multiple planes at 1 mm and [address] DIAGNOSTIC QUALITY: Satisfactory FINDINGS: The 2 mm nodule axial image 40) lung apex posteriorly No consolidative pneumonia, pleural effusion, or pneumothorax. There is no interstitial edema. Heart size is at upper limits of normal or mildly enlarged. Aorta demonstrates mild atherosclerotic c hange but no aneurysm. No significant coronary artery calcification. There is a small hiatal hernia. Hypertrophic and degenerative changes in the spine. Multilevel severe degenerative disc disease. IMPRESSION: 1. There is a 2 mm right apical pulmonary nodule which has a benign appearance. CT LUNG RAD AND CT CHEST RECOMMENDATION: Lung-Rad 2 Benign Appearance or Behavior: Continue annual sc reening with LDCT in 12 months.
== END | disposition home or self-care (01) ==
LOC: RADCTMAIN 07:29
PROVIDERS: ATTEND Family Medicine
DX: Z12.2 Encounter for screening for malignant neoplasm of respiratory organs (principal); R91.1 Solitary pulmonary nodule; Z87.891 Personal history of nicotine dependence
CPT/HCPCS: 71271

== ENCOUNTER → 2022-10-23 | Outpatient (CLI) | payer MEDICAID ==
--- NOTE | 2022-10-23 12:24 | XR ---
EXAMINATION TYPE: XR foot limited LT, XR ankle limited LT DATE OF EXAM: 10/23/2022 12:07 PM INDICATION: Patient age:Female; 61 years old; Reason for study: L foot pain; COMPARISON: None TECHNIQUE: The left foot and ankle were examined in the AP, oblique, and lateral projections. FINDINGS: There is a lucency within the medial aspect of the subchondral bone of the talus measuring 3 mm. No evidence of any acute osseous pathology. No evidence of soft tissue swelling. Joints are preserve d. Calcaneal plantar spurring is present. Calcaneal Achilles enthesophyte present. Minimal osteoarthr osis changes of the interphalangeal joints and joints of the midfoot and hindfoot. IMPRESSION: 1. No evidence of acute fracture. 2. Subchondral lucency in the medial aspect of the talar dome. This should be further evaluated with MRI for osteochondral defect. 3. Nonspecific Soft tissue swelling around the foot.
== END | disposition home or self-care (01) ==
LOC: RADXRMAIN 11:42
PROVIDERS: ATTEND Family Medicine
DX: M79.672 Pain in left foot (principal); M79.89 Other specified soft tissue disorders

== ENCOUNTER → 2023-10-29 | Outpatient (CLI) | payer MEDICAID ==
--- NOTE | 2023-10-29 21:09 | MM ---
Reason for Exam: Screening (asymptomatic). Last mammogram was performed 4 year(s) and 7 month(s) ago. Patient History: Menarche at age 13. First Full-Term at age 24. Left ovary removed at age 33. Right ovary removed at age 33. Hysterectomy at age 33. Postmenopausal. Maternal aunt had breast cancer. Risk Values: Peyton 5 year model risk: 1.4%. NCI Lifetime model risk: 7.2%. Prior Study Comparison: 11/15/2014 Bilateral Screening Mammogram, [facility]. 12/20/2015 Bilateral Screening Mammogram, [facility]. 03/27/2019 Bilateral Diagnostic Mammogram, [facility]. Tissue Density: There are scattered areas of fibroglandular density. Findings: Analyzed By CAD. There is no suspicious group of microcalcifications or new suspicious mass in either breast. Overall Assessment: Negative, BI-RAD 1 Management: Screening Mammogram of both breasts in 1 year. . Patient should continue monthly self-breast exams. A clinical breast exam by your physician is recommended on an annual basis. This exam should not preclude additional follow-up of suspicious palpable abnormalities. Note on Peyton scores and lifetime risk: 1. A Peyton score greater than 3% is considered moderate risk. If this is the case, consider specialist referral to assess eligibility for a risk reducing agent. 2. If overall lifetime risk for the development of breast cancer is 20% or higher, the patient may qualify for future screening with alternating mammogram and breast MRI. Electronically signed and approved by: Rubia Summers M.D. Radiologist
== END | disposition home or self-care (01) ==
LOC: RADMAMWWP 06:52
PROVIDERS: ATTEND Family Medicine
DX: Z12.31 Encounter for screening mammogram for malignant neoplasm of breast (principal); Z78.0 Asymptomatic menopausal state; Z80.3 Family history of malignant neoplasm of breast
CPT/HCPCS: 77063; 77067

== ENCOUNTER → 2023-11-06 | Outpatient (CLI) | payer MEDICAID ==
--- NOTE | 2023-11-06 17:26 | CTL ---
EXAMINATION TYPE: CT Low Dose Lung DATE OF EXAM ORDERED: 11/06/2023 HISTORY: History of tobacco use, 25 year history, quit 2 years ago, patient exposure to ethylene oxid e For years. Lung cancer screening CT DLP: 119.[address] CTDI: 4.0 mGy Automated exposure control for dose reduction was used. SCREENING VISIT: Follow-up COMPARISON: CT low-dose lung 10/06/2022 TECHNIQUE: Low dose computed tomography scan was performed through the chest at 1 mm thick sections a nd reconstructed images in multiple planes at 1 mm and [address] DIAGNOSTIC QUALITY: Satisfactory FINDINGS: Nodules: No clinically significant pulmonary nodules identified. Previously seen right apex lung nodule is not reproduced on today's exam. LUNGS: COPD: Severity: None Fibrosis: Severity: None Lymph nodes: None Other findings: None RIGHT PLEURAL SPACE: Effusion: None Calcification: None Thickening: None Pneumothorax: None LEFT PLEURAL SPACE: Effusion: None Calcification: None Thickening: None Pneumothorax: None HEART: Heart Size: Normal Coronary Calcification: None Pericardial Effusion: None OTHER FINDINGS: Upper abdomen: Postcholecystectomy. Liver is diffusely hypoattenuating consistent with steatosis. Bony thorax: No acute processes. Multilevel degenerative changes with posterior element surgical carrion ges of the lower thoracic spine. Supraclavicular region: None Other: None IMPRESSION: No clinically significant pulmonary nodules. CT LUNG RAD AND CT CHEST RECOMMENDATION: Lung-Rad 2 Benign Appearance or Behavior: Continue annual sc reening with LDCT in 12 months. S Modifier (other clinically significant findings): None
== END | disposition home or self-care (01) ==
LOC: RADCTMAIN 07:03
PROVIDERS: ATTEND Family Medicine
DX: Z12.2 Encounter for screening for malignant neoplasm of respiratory organs (principal); Z87.891 Personal history of nicotine dependence
CPT/HCPCS: 71271

== ENCOUNTER 2024-03-05 04:47 | Emergency (ER) | payer MEDICAID ==
[2024-03-05 04:52] VITALS: TEMP 98.8
--- NOTE | 2024-03-05 05:38 | ED ---
General Adult HPI - General Chief complaint: Extremity Injury, Lower Stated complaint: Rt Foot Injury Time Seen by Provider: 03/05/24 04:48 Source: patient Mode of arrival: ambulatory Limitations: no limitations - History of Present Illness Initial comments: Dictation was produced using [email or web address] dictation software. please excuse any grammatical, word or spelling errors. Chief Complaint: 63-year-old female with right foot pain History of Present Illness: Patient 63-year-old female presents with right foot. States that yesterday she tripped on her dog's chewing bone. Patient states that she hyperextended at the ankle and hyperflexed at the first MTP. States that she has pain along her first MTP. Patient has been ambulating with a slight limp. Patient worried that there is a fracture and if so she does not want to walk on it. The ROS documented in this emergency department record has been reviewed and confirmed by me. Those systems with pertinent positive or negative responses have been documented in the HPI. All other systems are other negative and/or noncontributory. - Related Data Home Medications Medication Instructions Recorded Confirmed Tamsulosin [Flomax] 0.4 mg PO HS 04/02/20 04/02/20 Previous Rx's Medication Instructions Recorded Ketorolac [Toradol] 10 mg PO Q8HR #15 tab 04/02/20 Metoclopramide [Reglan] 10 mg PO TID PRN #15 tab 04/02/20 Tamsulosin [Flomax] 0.4 mg PO DAILY #7 cap 04/02/20 Allergies Allergy/AdvReac Type Severity Reaction Status Date / Time morphine Allergy Unknown Verified 03/05/24 04:52 Penicillins Allergy Unknown Verified 03/05/24 04:52 ondansetron [From Zofran] AdvReac Unknown Verified 03/05/24 04:52 Review of Systems ROS Statement: Those systems with pertinent positive or pertinent negative responses have been documented in the HPI. ROS Other: All systems not noted in ROS Statement are negative. Past Medical History Past Medical History: GERD/Reflux History of Any Multi-Drug Resistant Organisms: None Reported Past Surgical History: Back Surgery, Cholecystectomy, Hysterectomy Past Psychological History: No Psychological Hx Reported Smoking Status: Never smoker Past Alcohol Use History: None Reported Past Drug Use History: None Reported General Exam - General Exam Comments Initial Comments: General: Well-appearing, nontoxic, no acute distress. Head: Normocephalic, atraumatic Eyes: PERRLA, EOMI ENT: Airway patent Chest: Nonlabored breathing Skin: No visual rash, normal skin tone Neuro: Alert and oriented 3 Musculoskeletal: No gross abnormalities Right foot: Slight abrasion over the top of the first MTP, no gross deformity Limitations: no limitations Course Vital Signs 03/05/24 04:49 Temperature 98.8 F Pulse Rate 99 Respiratory 20 Rate Blood Pressure 136/81 O2 Sat by Pulse 98 Oximetry Medical Decision Making - Medical Decision Making Was pt. sent in by a medical professional or institution (, PA, INTEGRATION SOLUTION ARCHITECT, urgent care, hospital, or [facility]...) When possible be specific @ -No Did you speak to anyone other than the patient for history (EMS, parent, family, police, friend...)? What history was obtained from this source @ -No Did you review nursing and triage notes (agree or disagree)? Why? @ -I reviewed and agree with nursing and triage notes Were old charts reviewed (outside hosp., previous admission, EMS record, old EKG, old radiological studies, urgent care reports/EKG's, [facility] records)? Report findings @ -No old charts were reviewed Differential Diagnosis (chest pain, altered mental status, abdominal pain women, abdominal pain men, vaginal bleeding, musculoskeletal, weakness, fever, dyspnea, syncope, headache, dizziness, GI bleed, back pain, seizure, CVA, palpatations, mental health)? @ -Lisfranc, Luna fracture, foot sprain EKG interpreted by me (3pts min.). @ -None done X-rays interpreted by me (1pt min.). @ -Foot and ankle x-ray unremarkable CT interpreted by me (1pt min.). @ -None done U/S interpreted by me (1pt. min.). @ -None done What testing was considered but not performed or refused? (CT, X-rays, U/S, labs)? Why? @ -None What meds were considered but not given or refused? Why? @ -None Was smoking cessation discussed for >3mins.? @ -No Were there social determinants of health that impacted care today? How? (Homelessness, low income, unemployed, alcoholism, drug addiction, transportation, low edu. Level, literacy, decrease access to med. care, skilled nursing, rehab)? @ -No Was there de-escalation of care discussed even if they declined (Discuss DNR or withdrawal of care, Hospice)? DNR status @ -No What co-morbidities impacted this encounter? (DM, HTN, Smoking, COPD, CAD, Cancer, CVA, ARF, Chemo, Hep., AIDS, mental health diagnosis, sleep apnea, morbid obesity)? @ -None Was patient admitted / discharged? Hospital course, mention meds given and route, prescriptions, significant lab abnormalities, going to OR and other pertinent info. @ -63-year-old female with foot sprain. Vital signs stable. Imaging studies are negative. Patient discharged Did you discuss the management of the patient with other professionals (professionals i.e. , PA, INTEGRATION SOLUTION ARCHITECT, lab, RT, psych nurse, social and political studies professor, journeyman plumber, teacher, driver's license reviewing officer, caseworker)? Give summary @ -No Was critical care preformed (if so, how long)? @ -No Undiagnosed new problem with uncertain prognosis? @ -No Drug Therapy requiring intensive monitoring for toxicity (Heparin, Nitro, Insulin, Cardizem)? @ -No Were any procedures done? @ -No Diagnosis/symptom? Acute, or Chronic, or Acute on Chronic? Uncomplicated (without systemic symptoms) or Complicated (systemic symptoms)? @ -Foot sprain Side effects of treatment? @ -No Exacerbation, Progression, or Severe Exacerbation? @ -No Poses a threat to life or bodily function? How? (Chest pain, [place], [place], pneumonia, PE, COPD, DKA, ARF, appy, cholecystitis, CVA, Diverticulitis, Homicidal, Suicidal, threat to staff... and all critical care pts) @ -No Disposition Clinical Impression: Foot sprain Disposition: HOME SELF-CARE Condition: Good Instructions (If sedation given, give patient instructions): Foot Sprain (ED) Is patient prescribed a controlled substance at d/c from ED?: No Referrals: Nannette Velez MD [Primary Care Provider] - 1-2 days Time of Disposition: 05:52
--- NOTE | 2024-03-05 05:40 | XR ---
EXAMINATION TYPE: XR ankle complete RT, XR foot complete RT DATE OF EXAM: 03/05/2024 CLINICAL HISTORY: Pain. TECHNIQUE: Frontal, lateral and oblique images of the right ankle and foot are obtained. COMPARISON: None. FINDINGS: There is no acute fracture/dislocation evident in the right ankle. Lateral ankle mortise w idening is seen. Findings suggest old trauma and/or ligamentous injury. No acute displaced fracture o f the right foot. Overlying soft tissues unremarkable. IMPRESSION: There is no acute fracture or dislocation in the right ankle or foot. [facility], , 03/05/2024 5:38 AM
[2024-03-05 06:01] VITALS: BP 135/84; PULSE 80; RESP 18
== END 2024-03-05 06:01 | disposition home or self-care (01) ==
LOC: EC 04:47
CPT/HCPCS: 99283

== ENCOUNTER 2024-12-15 23:23 | Emergency (ER) | payer MEDICAID ==
[2024-12-15 23:57] LABS: Glucose,Whole Blood 144 mg/dL (70-110)
--- NOTE | 2024-12-16 00:35 | ED ---
Abdominal Pain HPI - General Chief Complaint: Abdominal Pain Stated Complaint: Abd Pain Time Seen by Provider: 12/15/24 23:39 Source: patient, EMS Mode of arrival: EMS Limitations: no limitations - History of Present Illness Initial Comments: This patient is a 64-year-old woman who arrives to have evaluation of right lower quadrant pain. 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 It is sharp, constant, she has not found worsening or relieving factors. She has not had fever or chills. No change in urination or bowel movements noted. MD Complaint: abdominal pain -: minutes(s) Location: RLQ Radiation: none Migration to: no migration Severity: severe Quality: aching, sharp Consistency: constant Improves With: nothing Worsens With: eating Associated Symptoms: denies other symptoms - Related Data Home Medications Medication Instructions Recorded Confirmed Tamsulosin [Flomax] 0.4 mg PO HS 04/02/20 04/02/20 Previous Rx's Medication Instructions Recorded Ketorolac [Toradol] 10 mg PO Q8HR #15 tab 04/02/20 Metoclopramide [Reglan] 10 mg PO TID PRN #15 tab 04/02/20 Tamsulosin [Flomax] 0.4 mg PO DAILY #7 cap 04/02/20 traMADol HCl [Ultram] 50 mg PO Q6H PRN #20 tab 12/16/24 Allergies Allergy/AdvReac Type Severity Reaction Status Date / Time morphine Allergy Unknown Verified 12/15/24 23:33 Penicillins Allergy Unknown Verified 12/15/24 23:33 ondansetron [From Zofran] AdvReac Unknown Verified 12/15/24 23:33 Review of Systems ROS Statement: Those systems with pertinent positive or pertinent negative responses have been documented in the HPI. ROS Other: All systems not noted in ROS Statement are negative. Constitutional: Denies: fever, chills, weakness Respiratory: Denies: cough, dyspnea Cardiovascular: Denies: chest pain, palpitations, edema Gastrointestinal: Reports: as per HPI, abdominal pain. Denies: nausea, vomiting, diarrhea, constipation, melena, hematochezia Genitourinary: Denies: urgency, dysuria, frequency Musculoskeletal: Denies: back pain Skin: Denies: rash Neurological: Denies: headache, weakness, numbness Past Medical History Past Medical History: Diabetes Mellitus, GERD/Reflux History of Any Multi-Drug Resistant Organisms: None Reported Past Surgical History: Back Surgery, Cholecystectomy, Hysterectomy Past Psychological History: No Psychological Hx Reported Smoking Status: Never smoker Past Alcohol Use History: None Reported Past Drug Use History: None Reported General Exam Limitations: no limitations General appearance: alert, in no apparent distress Head exam: Present: atraumatic, normocephalic Eye exam: Present: normal appearance. Absent: scleral icterus, conjunctival injection ENT exam: Present: normal oropharynx Neck exam: Present: normal inspection Respiratory exam: Present: normal lung sounds bilaterally. Absent: respiratory distress, wheezes, rales, rhonchi, stridor, accessory muscle use Cardiovascular Exam: Present: regular rate, normal rhythm, normal heart sounds. Absent: systolic murmur, diastolic murmur, rubs, gallop GI/Abdominal exam: Present: soft, tenderness. Absent: distended, guarding, rebound, rigid, mass, pulsatile mass, hernia Extremities exam: Present: normal inspection, normal capillary refill. Absent: pedal edema, calf tenderness Back exam: Present: normal inspection. Absent: CVA tenderness (R), CVA tenderness (L) Neurological exam: Present: alert Skin exam: Present: warm, dry, intact, normal color. Absent: rash Course Vital Signs 12/15/24 12/16/24 23:28 05:37 Temperature 98.2 F 98.1 F Pulse Rate 79 81 Respiratory 19 18 Rate Blood Pressure 144/82 141/80 O2 Sat by Pulse 100 99 Oximetry Medical Decision Making - Medical Decision Making The patient had CT scan of the abdomen and pelvis that I interpreted as negative for free air, obstruction, or acute surgical condition. Was pt. sent in by a medical professional or institution (, PA, SURGICAL CLINICAL REVIEWER, urgent care, hospital, or [facility]...) When possible be specific @ -[No] Did you speak to anyone other than the patient for history (EMS, parent, family, police, friend...)? What history was obtained from this source @ -[No] Did you review nursing and triage notes (agree or disagree)? Why? @ -[I reviewed and agree with nursing and triage notes] Were old charts reviewed (outside hosp., previous admission, EMS record, old EKG, old radiological studies, urgent care reports/EKG's, [facility] records)? Report findings @ -[No old charts were reviewed] Differential Diagnosis (chest pain, altered mental status, abdominal pain women, abdominal pain men, vaginal bleeding, weakness, fever, dyspnea, syncope, headache, dizziness, GI bleed, back pain, seizure, CVA, palpatations, mental health, musculoskeletal)? @ -[Differential Abdominal Pain Women: Appendicitis, Cholecystitis, diverticulosis, ischemic bowel, pancreatitis, hepatitis, UTI, gastroenteritis, AAA, incarcerated hernia, bowel obstruction, constipation, inflammatory bowel, hepatitis, peptic ulcer disease, splenic infarction, perforated viscus, vulvitis, ovarian torsion, PID, kidney stone, placenta abruption, this is not meant to be an all-inclusive list EKG interpreted by me (3pts min.). @ -[I interpreted as above] X-rays interpreted by me (1pt min.). @ -[None done] CT interpreted by me (1pt min.). @ -[I interpreted as above U/S interpreted by me (1pt. min.). @ -[None done] What testing was considered but not performed or refused? (CT, X-rays, U/S, labs)? Why? @ -[None] What meds were considered but not given or refused? Why? @ -[None] Did you discuss the management of the patient with other professionals (professionals i.e. , PA, SURGICAL CLINICAL REVIEWER, lab, RT, psych nurse, social sciences chair, fire captain marine, teacher, finance officer, protective services case worker)? Give summary @ -[No] Was smoking cessation discussed for >3mins.? @ -[No] Was critical care preformed (if so, how long)? @ -[No] Were there social determinants of health that impacted care today? How? (Homelessness, low income, unemployed, alcoholism, drug addiction, transportation, low edu. Level, literacy, decrease access to med. care, snf, rehab)? @ -[No] Was there de-escalation of care discussed even if they declined (Discuss DNR or withdrawal of care, Hospice)? DNR status @ -[No] What co-morbidities impacted this encounter? (DM, HTN, Smoking, COPD, CAD, Cancer, CVA, ARF, Chemo, Hep., AIDS, mental health diagnosis, sleep apnea, morbid obesity)? @ -[None] Was patient admitted / discharged? Hospital course, mention meds given and route, prescriptions, significant lab abnormalities, going to OR and other pertinent info. @ -[Patient is 64-year-old woman here with abdominal pain. The patient's physical exam does reveal some mild diffuse tenderness and therefore CT scan added to the lab workup. The CT and workup unremarkable other than some degree of hematuria. The patient states that this is chronic going back years. she has had improvement with medication here and at this point stable to have follow-up with her physician for referral to urology related to the hematuria. Discussed return parameters. Undiagnosed new problem with uncertain prognosis? @ -[No] Drug Therapy requiring intensive monitoring for toxicity (Heparin, Nitro, Insulin, Cardizem)? @ -[No] Were any procedures done? @ -[No] Diagnosis/symptom? @ -[Acute abdominal pain Chronic hematuria Acute, or Chronic, or Acute on Chronic? @ -[Acute Uncomplicated (without systemic symptoms) or Complicated (systemic symptoms)? @ -[Uncomplicated Side effects of treatment? @ -[No] Exacerbation, Progression, or Severe Exacerbation? @ -[No] Poses a threat to life or bodily function? How? (Chest pain, [place], [place], pneumonia, PE, COPD, DKA, ARF, appy, cholecystitis, CVA, Diverticulitis, Homicidal, Suicidal, threat to staff... and all critical care pts) @ -[No] All treatments are based on ideal body weight as in ED triage - Lab Data Result diagrams: 12/16/24 00:00 12/16/24 00:00 Lab Results 12/15/24 12/16/24 12/16/24 Range/Units 23:56 00:00 00:00 WBC 6.84 (4.50-10.00) 10*3/uL RBC 4.70 (4.10-5.20) 10*6/uL Hgb 14.2 (12.0-15.0) g/dL Hct 43.1 (37.2-46.3) % MCV 91.7 (80.0-97.0) fL MCH 30.2 (27.0-32.0) pg MCHC 32.9 (32.0-37.0) g/dL Plt Count 211 (140-440) 10*3/uL MPV 9.7 (9.5-12.2) fL Immature Gran % (Auto) 0.4 % Neutrophils % 65.4 % Lymphocytes % 26.8 % Monocytes % 5.8 % Eosinophils % 1.0 % Basophils % 0.6 % Immature Gran # 0.03 (0.00-0.04) 10*3/uL Neutrophils # 4.47 (1.80-7.70) 10*3/uL Lymphocytes # 1.83 (0.90-5.00) 10*3/uL Monocytes # 0.40 (0.20-1.00) 10*3/uL Eosinophils # 0.07 (0.04-0.35) 10*3/uL Basophils # 0.04 (0.00-0.10) 10*3/uL Sodium 139 (137-145) mmol/L Potassium 3.9 (3.5-5.1) mmol/L Chloride 103 (98-107) mmol/L Carbon Dioxide 23 (22-30) mmol/L Anion Gap 13 mmol/L BUN 26 H (7-17) mg/dL Creatinine 1.11 H (0.52-1.04) mg/dL Est GFR (CKD-EPI)AfAm 62 (>60 ml/min/1.73 sqM) Est GFR (CKD-EPI)NonAf 54 (>60 ml/min/1.73 sqM) Glucose 157 H (74-99) mg/dL POC Glucose (mg/dL) 144 H (70-110) mg/dL POC Glu Cto ID Oscar Emsameer Calcium 10.8 H (8.4-10.2) mg/dL Total Bilirubin 0.4 (0.2-1.3) mg/dL AST 24 (14-36) U/L ALT 19 (4-34) U/L Alkaline Phosphatase 83 (38-126) U/L C-Reactive Protein <0.5 (<1.0) mg/dL Total Protein 6.9 (6.3-8.2) g/dL Albumin 4.3 (3.5-5.0) g/dL Amylase 61 (30-110) U/L Lipase 161 (23-300) U/L Urine Color Urine Appearance (Clear) Urine pH (5.0-8.0) Ur Specific [place] (1.001-1.035) Urine Protein (Negative) Urine Glucose (UA) (Negative) Urine Ketones (Negative) Urine Blood (Negative) Urine Nitrite (Negative) Urine Bilirubin (Negative) Urine Urobilinogen (<2.0) mg/dL Ur Leukocyte Esterase (Negative) Urine RBC (0-5) /hpf Urine WBC (0-5) /hpf Ur Squamous Epith Cells (0-4) /hpf Amorphous Sediment (None) /hpf Hyaline Casts (0-2) /lpf Urine Mucus (None) /hpf 12/16/24 Range/Units 00:49 WBC (4.50-10.00) 10*3/uL RBC (4.10-5.20) 10*6/uL Hgb (12.0-15.0) g/dL Hct (37.2-46.3) % MCV (80.0-97.0) fL MCH (27.0-32.0) pg MCHC (32.0-37.0) g/dL Plt Count (140-440) 10*3/uL MPV (9.5-12.2) fL Immature Gran % (Auto) % Neutrophils % % Lymphocytes % % Monocytes % % Eosinophils % % Basophils % % Immature Gran # (0.00-0.04) 10*3/uL Neutrophils # (1.80-7.70) 10*3/uL Lymphocytes # (0.90-5.00) 10*3/uL Monocytes # (0.20-1.00) 10*3/uL Eosinophils # (0.04-0.35) 10*3/uL Basophils # (0.00-0.10) 10*3/uL Sodium (137-145) mmol/L Potassium (3.5-5.1) mmol/L Chloride (98-107) mmol/L Carbon Dioxide (22-30) mmol/L Anion Gap mmol/L BUN (7-17) mg/dL Creatinine (0.52-1.04) mg/dL Est GFR (CKD-EPI)AfAm (>60 ml/min/1.73 sqM) Est GFR (CKD-EPI)NonAf (>60 ml/min/1.73 sqM) Glucose (74-99) mg/dL POC Glucose (mg/dL) (70-110) mg/dL POC Glu Cto ID Calcium (8.4-10.2) mg/dL Total Bilirubin (0.2-1.3) mg/dL AST (14-36) U/L ALT (4-34) U/L Alkaline Phosphatase (38-126) U/L C-Reactive Protein (<1.0) mg/dL Total Protein (6.3-8.2) g/dL Albumin (3.5-5.0) g/dL Amylase (30-110) U/L Lipase (23-300) U/L Urine Color Colorless Urine Appearance Clear (Clear) Urine pH 6.0 (5.0-8.0) Ur Specific [place] 1.022 (1.001-1.035) Urine Protein Negative (Negative) Urine Glucose (UA) Negative (Negative) Urine Ketones Negative (Negative) Urine Blood Large H (Negative) Urine Nitrite Negative (Negative) Urine Bilirubin Negative (Negative) Urine Urobilinogen <2.0 (<2.0) mg/dL Ur Leukocyte Esterase Negative (Negative) Urine RBC 122 H (0-5) /hpf Urine WBC 5 (0-5) /hpf Ur Squamous Epith Cells 1 (0-4) /hpf Amorphous Sediment Rare H (None) /hpf Hyaline Casts 3 H (0-2) /lpf Urine Mucus Occasional H (None) /hpf - EKG Data -: EKG Interpreted by Nv EKG shows normal: sinus rhythm, axis (Normal), intervals (Normal), QRS complexes (Low voltage QRS complex) Rate: normal (Rate 73 bpm) Disposition Clinical Impression: Abdominal pain Disposition: HOME SELF-CARE Condition: Good Instructions (If sedation given, give patient instructions): Abdominal Pain (ED) Prescriptions: traMADol HCl [Ultram] 50 mg PO Q6H PRN #20 tab PRN Reason: Pain Is patient prescribed a controlled substance at d/c from ED?: No Referrals: Nannette Velez MD [Primary Care Provider] - 1-2 days
[2024-12-16 00:41] LABS: Basophils # (A) 0.04 10*3/uL (0.00-0.10); Basophils % (A) 0.6 %; Eosinophils # (A) 0.07 10*3/uL (0.04-0.35); Eosinophils % (A) 1.0 %; HCT 43.1 % (37.2-46.3); HGB 14.2 g/dL (12.0-15.0); Lymphocytes # (A) 1.83 10*3/uL (0.90-5.00); Lymphocytes % (A) 26.8 %; MCH 30.2 pg (27.0-32.0); MCHC 32.9 g/dL (32.0-37.0); MCV 91.7 fL (80.0-97.0); Monocytes # (A) 0.40 10*3/uL (0.20-1.00); Monocytes % (A) 5.8 %; Neutrophils # (A) 4.47 10*3/uL (1.80-7.70); Neutrophils % (A) 65.4 %; Platelet Count 211 10*3/uL (140-440); RBC 4.70 10*6/uL (4.10-5.20); RDW 12.8 % (11.5-14.5); WBC 6.84 10*3/uL (4.50-10.00)
[2024-12-16 01:14] LABS: ALT 19 U/L (4-34); AST 24 U/L (14-36); African American GFR (CKD) 62 (>60 ml/min/1.73 sqM); Albumin 4.3 g/dL (3.5-5.0); Alkaline Phosphatase 83 U/L (38-126); Amylase 61 U/L (30-110); Anion Gap 13 mmol/L; Blood Urea Nitrogen 26 mg/dL (7-17); Calcium 10.8 mg/dL (8.4-10.2); Carbon Dioxide 23 mmol/L (22-30); Chloride 103 mmol/L (98-107); Glucose 157 mg/dL (74-99); Lipase 161 U/L (23-300); Non-African American GFR(CKD) 54 (>60 ml/min/1.73 sqM); Potassium 3.9 mmol/L (3.5-5.1); Sodium 139 mmol/L (137-145); Total Protein 6.9 g/dL (6.3-8.2)
[2024-12-16 01:56] LABS: Amorphous Sediment,Urine Rare /hpf; Bilirubin,Urine Negative (Negative); Blood,Urine Large (Negative); Color,Urine Colorless; Glucose,Urine (UA) Negative (Negative); Hyaline Casts,Urine 3 /lpf (0-2); Ketones,Urine Negative (Negative); Leukocyte Esterase,Urine Negative (Negative); Mucus,Urine Occasional /hpf; Nitrite,Urine Negative (Negative); PH, Urine 6.0 (5.0-8.0); Protein,Urine Negative (Negative); RBC,Urine 122 /hpf (0-5); Specific Gravity,Urine 1.022 (1.001-1.035); Squamous Epithelial Cell,Urine 1 /hpf (0-4); Urobilinogen,Urine <2.0 mg/dL (<2.0); WBC,Urine 5 /hpf (0-5)
[2024-12-16] MEDS: KETOROLAC 15 MG/ML 1 ML VIAL IVP STA (02:32)
--- NOTE | 2024-12-16 03:57 | CT ---
EXAM: CT Abdomen and Pelvis Without Intravenous Contrast CLINICAL HISTORY: Regular quadrant Pain TECHNIQUE: Axial computed tomography images of the abdomen and pelvis without intravenous contrast. CTDI is 9.4 mGy and DLP is 553.5 mGy-cm. This CT exam was performed using one or more of the following dose reduction techniques: automated exposure control, adjustment of the mA and/or kV according to patient size, and/or use of iterative reconstruction technique. COMPARISON: Chest radiograph 02/28/2019 FINDINGS: Lung bases: Unremarkable. No mass. No consolidation. ABDOMEN: Liver: Unremarkable. Gallbladder and bile ducts: Cholecystectomy. No ductal dilation. Pancreas: Unremarkable. No ductal dilation. Spleen: Unremarkable. No splenomegaly. Adrenals: Unremarkable. No mass. Kidneys and ureters: Bilateral nonobstructing renal calculi. No hydronephrosis of either kidney. Stomach and bowel: Unremarkable. No obstruction. No mucosal thickening. PELVIS: Appendix: Normal appendix. Bladder: Unremarkable. No stones. Reproductive: Hysterectomy. ABDOMEN and PELVIS: Intraperitoneal space: Unremarkable. No free air. No significant fluid collection. Bones/joints: There are degenerative changes of the spine. No acute fracture. No dislocation. Soft tissues: Unremarkable. Vasculature: Mild atherosclerosis. No aneurysm. Lymph nodes: Unremarkable. No enlarged lymph nodes. IMPRESSION: Bilateral nonobstructing renal calculi. No hydronephrosis of either kidney.
[2024-12-16] MEDS: fentaNYL (PF) 50 MCG/ML 2 ML AMP IVP STA (04:24)
[2024-12-16] MEDS: traMADol 50 MG TAB PO STA (04:29)
[2024-12-16 05:38] VITALS: BP 141/80; PULSE 81; RESP 18; TEMP 98.1
[2024-12-16] MEDS: traMADol 50 MG STARTER PACK TAB BTL PO STA (05:41)
== END 2024-12-16 05:44 | disposition home or self-care (01) ==
LOC: EC 23:23
DX: N20.0 Calculus of kidney (principal); Z88.0 Allergy status to penicillin; Z88.8 Allergy status to other drugs, medicaments and biological substances; Z88.5 Allergy status to narcotic agent
CPT/HCPCS: 36415 ×2; 93005; 80053; 82150; 83690; 85025; 86140; 81001; 74176; 99284; 96374; J1885